=== PATIENT | male | born 1955 | race Caucasian/White ===

== ENCOUNTER → 2024-09-16 10:21 | Outpatient (CLI) | payer MEDICARE, OTHER, SELFPAY ==
--- NOTE | 2024-09-16 10:28 | DI.RAD.S_ITS ---
PROCEDURE: XR HIP W PEL IF DONE LT 2V INDICATIONS: L HIP PAIN TECHNIQUE: < AP pelvis and left hip were acquired. COMPARISON: None. FINDINGS: Bones: Enthesopathic changes in the anterior ilium and obturator ring SI and hip joints: Moderate right and mild left hip degeneration noted. SI joints are normal. Soft tissues: No soft tissue swelling, calcification or mass. IMPRESSION: Chronic findings as described Dictated by: Mitchell Espinal M.D. on 09/17/2024 at 11:15 Approved by: Mitchell Espinal M.D. on 09/17/2024 at 11:17
== END ==
PROVIDERS: PCP Family Medicine; Referring Provider Chiropractor; Visit Provider Chiropractor
DX: M16.0 Bilateral primary osteoarthritis of hip (principal); M25.552 Pain in left hip
CPT/HCPCS: 73502

== ENCOUNTER → 2024-09-22 09:53 | Outpatient (CLI) | payer MEDICARE, OTHER, SELFPAY ==
--- NOTE | 2024-09-22 09:58 | DI.RAD.S_ITS ---
PROCEDURE: XR FEMUR LT MIN 2V INDICATIONS: LT FEMER PAIN TECHNIQUE: 4 views of the femur were acquired. COMPARISON: None. FINDINGS: Bones: No fractures or dislocations. Moderate left hip joint osteoarthritic changes are seen. No evidence of avascular necrosis of femoral head. No suspicious bony lesions. Soft tissues: No suspicious soft tissue calcifications or masses. Vascular calcifications are noted in medial left thigh. IMPRESSION: No left femoral fracture or dislocation. Left hip joint osteoarthritis. No evidence of avascular necrosis. Vascular calcification in medial left thigh soft tissue. Dictated by: Logan Marical M.D. on 09/22/2024 at 12:36 Approved by: Logan Marcial M.D. on 09/22/2024 at 12:37
== END ==
PROVIDERS: PCP Family Medicine; Referring Provider Family Medicine; Visit Provider Family Medicine
DX: M77.9 Enthesopathy, unspecified (principal); M16.12 Unilateral primary osteoarthritis, left hip
CPT/HCPCS: 73552

== ENCOUNTER → 2024-09-29 10:16 | Outpatient (CLI) | payer MEDICARE, OTHER, SELFPAY ==
--- NOTE | 2024-09-29 10:20 | DI.RAD.S_ITS ---
PROCEDURE: XR HIP W PEL IF DONE LT 2V INDICATIONS: LT HIP PAIN TECHNIQUE: AP pelvis with lateral view(s) of the left hip (s). COMPARISON: [facility], CR, XR HIP W PEL IF DONE LT 2V, 09/16/2024, 10:31. FINDINGS: Bones: There is minimal thickening and slight irregularity of the posterior cortex of the upper left femoral diaphysis. Left hip joints: Normal in width and alignment without arthritic change Soft tissues: No soft tissue swelling, calcification or mass. IMPRESSION: Mild thickening and cortical irregularity posterior cortex left femoral diaphysis. Significance unknown skin. Consider MRI Dictated by: Mitchell Espinal M.D. on 09/30/2024 at 12:19 Approved by: Mitchell Espinal M.D. on 09/30/2024 at 12:22
== END ==
PROVIDERS: PCP Family Medicine; Referring Provider Family Medicine; Visit Provider Chiropractor
DX: M76.9 Unspecified enthesopathy, lower limb, excluding foot (principal)
CPT/HCPCS: 73502

== ENCOUNTER → 2024-10-27 11:12 | Outpatient (CLI) | payer MEDICARE, OTHER, SELFPAY ==
--- NOTE | 2024-10-27 11:14 | DI.RAD.S_ITS ---
PROCEDURE: XR LUMBAR SPINE 4V INDICATIONS: BACK PAIN TECHNIQUE: 4 views of the lumbar spine were acquired. COMPARISON: None. FINDINGS: Moderate to severe degenerative changes of the lumbar spine with disc space narrowing, osteophytes, facet osseous hypertrophic changes most notably L three-four, L4-5 and L5-S1 with probable neural foraminal narrowing. Multilevel closely at post posterior spinous processes, Baastrup's configuration which may be a cause of posterior pain. Severe vascular calcifications of the aorta and iliac vessels image. Moderate degenerative changes bilateral hips and sacroiliac joints partially imaged. Degenerative changes lower thoracic spine. No radiographic evidence of lumbar fracture or subluxation. IMPRESSION: Degenerative changes as discussed above. If symptoms persist or worsen, or there is high clinical suspicion of lumbar abnormality, MRI could be performed. Dictated by: Jayesh Kay M.D. on 10/27/2024 at 22:06 Approved by: Jayesh Kay M.D. on 10/27/2024 at 22:10
== END ==
PROVIDERS: PCP Family Medicine; Referring Provider Chiropractor; Visit Provider Chiropractor
DX: M54.50 Low back pain, unspecified (principal); M48.061 Spinal stenosis, lumbar region without neurogenic claudication; M25.78 Osteophyte, vertebrae; M48.26 Kissing spine, lumbar region; I70.0 Atherosclerosis of aorta; M89.8X0 Other specified disorders of bone, multiple sites; M47.816 Spondylosis without myelopathy or radiculopathy, lumbar region; M47.817 Spondylosis without myelopathy or radiculopathy, lumbosacral region
CPT/HCPCS: 72100